=== PATIENT | male | born 1995 ===

== ENCOUNTER → 2018-10-14 19:00 | Outpatient (REF) | payer OTHER, SELFPAY ==
[2018-10-14 20:44] LABS: Urine N gonorrhoeae NOT DETECTED
[2018-10-14 20:54] LABS: Urine Chlamydia NOT DETECTED
== END ==
LOC: LAB 19:00
PROVIDERS: Visit Provider Nurse Practitioner Acute Care
DX: Z11.3 Encounter for screening for infections with a predominantly sexual mode of transmission (principal)
CPT/HCPCS: 87086; 87491; 87591